=== PATIENT | female | born 2000 | race Caucasian/White ===

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

== ENCOUNTER → 2021-08-07 | Outpatient (CLI) | payer OTHER ==
--- NOTE | 2021-08-07 16:38 | Diagnostic Imaging Report ---
INDICATION: . Anatomic survey. TECHNIQUE: Multiple Real-time grayscale images were obtained over the gravid uterus. COMPARISON: None. FINDINGS: There is a single live intrauterine gestation. The cervix measures 4.2 cm in length. There is no funneling or endocervical fluid. The placenta is posterior without evidence of previa. The presentation is cephalic. The stomach is seen. The heart rate measures 155 BPM. The bladder is seen. The umbilical arteries are seen. The cord insertion is seen. The kidneys are seen. The upper and lower spine is seen. The cerebellum and cisterna magna are seen. The lateral ventricle is seen. The face is seen. The lower extremities are partially seen. The amniotic fluid index measures 12.8 cm. The left ventricular outflow tract is seen. The right ventricular outflow tract is seen. A four-chamber heart is suboptimally visualized. Biometrical measurements are as follows: Biparietal 5.10 cm, age 21 weeks 4 days. Head circumference 18.36 cm, age 20 weeks 6 days. Abdominal circumference 15.43 cm, age 20 weeks 5 days. Femur length 3.37 cm, age 20 weeks 4 days. Sonographic estimate age: 21 weeks 0 days. Sonographic estimated date of delivery: 12/18/2021. Estimated Weight: 367 gm (+/- 54 gm). LMP percentile: 73%. heart rate: 155 beats per minute. number: 1 of 1. IMPRESSION: 1. Single live intrauterine gestation measuring at 21 weeks and 0 days which is within range of the clinical dates. 2. No abnormality is seen on the anatomic survey. The four-chamber heart is suboptimally visualized. Dictated by: Dictated on workstation # [id number]
== END ==
LOC: RAD 14:55
PROVIDERS: ATTEND Nurse Practitioner Women's Health
DX: Z34.02 Encounter for supervision of normal first pregnancy, second trimester (principal); Z3A.21 21 weeks gestation of pregnancy
CPT/HCPCS: 76805

== ENCOUNTER 2021-11-13 14:48 | Outpatient (CLI) | payer OTHER ==
[~2021-11-13] VITALS: Ht 180.3 cm; Wt 85.0 kg
[2021-11-13 15:15] VITALS: BP 132/79
[2021-11-13 15:21] LABS: BILIRUBIN,URINE NEGATIVE (NEGATIVE); CLARITY,URINE CLEAR; COLOR,URINE YELLOW; GLUCOSE, URINE (UA) NEGATIVE (NEGATIVE); KETONES,URINE NEGATIVE (NEGATIVE); LEUKOCYTE ESTERASE ,URINE TRACE (NEGATIVE); NITRITE,URINE NEGATIVE (NEGATIVE); PH,URINE 6.5 (5-9); PROTEIN,URINE NEGATIVE (NEGATIVE)
[2021-11-13 15:37] LABS: BACTERIA,URINE TRACE /HPF; WBC,URINE 0-2 /HPF
== END 2021-11-13 15:41 | disposition home or self-care (01) ==
LOC: WSo 14:48 → LDRP 14:48 → WSo 15:41
PROVIDERS: ATTEND Obstetrics & Gynecology
DX: Z34.90 Encounter for supervision of normal pregnancy, unspecified, unspecified trimester (principal); Z3A.00 Weeks of gestation of pregnancy not specified
CPT/HCPCS: 81000

== ENCOUNTER 2021-12-19 06:20 | Inpatient (IN) | payer OTHER, BC ==
[2021-12-19] VITALS (48 sets, daily range): BP systolic 105–166; BP diastolic 58–95
[~2021-12-19] VITALS: Ht 182.9 cm; Wt 88.8 kg
--- NOTE | 2021-12-19 07:28 | History & Physical-OB ---
FINN NAVA 12/19/21 0728: OB - Chief Complaint & HPI Date/Time Date of Admission: Date of Admission: Dec 19, 2021 at 06:20 Date seen by a Provider: Dec 19, 2021 Time Seen by a Provider: 07:15 Chief Complaint/History OB-Reason for Admission/Chief: Induction of Labor Hx : 1 Hx Para: 0 Expected Date of Delivery: Dec 24, 2021 Gestational Age in Weeks: 39 Gestational Age in Days: 2 Admission Nurse Assessment Rev: Yes Allergies and Home Medications Patient Home Medication List Home Medication List Reviewed: Yes No Active Prescriptions or Reported Meds OB - History Hx of Present Care: Yes Ultrasounds: Normal mid trimester US Obstetrical Complications: None Medical Complications: None Information Induced Hypertension: No Maternal Gestational Diabetes: No Hemorrhage: No Patient Past Medical History Patient denies past medical history except for depression which she takes sertraline for. Previous surgery includes left ACL repair. Social History/Family History Alcohol Use: Occasionally Uses (Before ) Recreational Drug Use: No Smoking Cessation: Never smoker 2nd Hand Smoke Exposure: No Immunizations Hepatitis A: Yes Hepatitis B: Yes Tetanus Booster (TDap): Less than 5yrs Rubella: immune RPR/VDRL: Negative GBS Status: Negative HBsAG: Negative OB - Admission Exam Physical Exam HEENT: Moist Membranes Heart: Rhythm Normal Lungs: Clear Abdomen: Non tender Extremities: Edema Cervical Dilatation: 3cm Effacement: 25% Station: -3 Membranes: Intact Heart Rate: 130's Accelerations: Accelerations Present Decelerations: No Decelerations Short Term Variability: Present Health Science Specialist Variability: Average (6-25) Contractions on Admission: None OB - Assessment/Plan/Diagnosis Assessment Assessment: induction of labor Admission Estephanie Cosby is a 21yo F at 39w2d here for induction of labor. The patient has received care throughout her with no complications. The patient was awake, sitting up in bed at the beginning of the interview. She denies having any pain or contractions. Patient has had bilateral lower extremity swelling throughout her . Reports feeling pressure in her upper abdomen that is uncomfortable. Denies feeling SOB, cough, having chest pain, nausea, diarrhea, constipation, or dysuria. Admission Status: Observation Plan Plan: Induction Induction Method: per Pitocin Protocol Other Plan Patient is being induced today. Her water will be broken manually and then misoprostol 25mcg Q2hrs will be started. BISMARK HANCOCK DO 12/19/21 0743: Allergies and Home Medications Patient Home Medication List No Active Prescriptions or Reported Meds OB - Assessment/Plan/Diagnosis Plan Other Plan Verification and Attestation of Medical Student E/M Service A medical student performed and documented this service in my presence. I reviewed and verified all information documented by the medical student and made modifications to such information, when appropriate. I personally performed the physical exam and medical decision making. Bismark Hancock, Dec 19, 2021,07:43 FINN NAVA Dec 19, 2021 07:28 BISMARK HANCOCK DO Dec 19, 2021 07:43
[2021-12-19] MEDS ORDERED: D5 LR IV SOLUTION 1,000 ML IV ONE (07:41)
[2021-12-19] MEDS: D5 LR IV SOLUTION 1,000 ML IV SCH (07:45)
[2021-12-19 08:25] LABS: BASOPHILS % (AUTO) 0 % (0-10); EOSINOPHILS # (AUTO) 0.1 10^3/uL (0.0-0.3); EOSINOPHILS % (AUTO) 1 % (0-10); HEMATOCRIT 35 % (35-52); HEMOGLOBIN 11.6 g/dL (11.5-16.0); LYMPHOCYTES # (AUTO) 1.2 10^3/uL (1.0-4.0); LYMPHOCYTES % (AUTO) 12 % (12-44); MEAN CORPUSCULAR HEMOGLOBIN 32 pg (25-34); MEAN CORPUSCULAR HGB CONC 33 g/dL (32-36); MEAN CORPUSCULAR VOLUME 95 fL (80-99); MEAN PLATELET VOLUME 12.1 fL (9.0-12.2); MONOCYTES # (AUTO) 0.7 10^3/uL (0.0-1.0); MONOCYTES % (AUTO) 8 % (0-12); NEUTROPHILS # (AUTO) 7.5 10^3/uL (1.8-7.8); NEUTROPHILS % (AUTO) 78 % (42-75); PLATELET COUNT 151 10^3/uL (130-400); WHITE BLOOD COUNT 9.5 10^3/uL (4.3-11.0)
[2021-12-19] MEDS ORDERED: LIDOCAINE 1% INJ 20 ML VIAL IJ PRN (08:30)
[2021-12-19] MEDS ORDERED: LACTATED RINGERS 1,000 ML IV ONE ×2 (08:41→09:30)
[2021-12-19] MEDS ORDERED: fentaNYL 2 mcg/ml BUPIVA 0.125 100 ML ONE (08:41)
[2021-12-19] MEDS ORDERED: BUPIVACAINE 0.25% 30 ML (SENSORCAINE) VIAL ONE (08:51)
[2021-12-19] MEDS ORDERED: fentaNYL INJ 100 MCG/2 ML AMP ONE (08:51)
[2021-12-19] MEDS ORDERED: OXYTOCIN PRE-MIX DRIP 500 ML IV SCH ×2 (09:00→15:30)
[2021-12-19] MEDS ORDERED: ONDANSETRON 4 MG/2 ML (SDV) Z0FRAN ONE (09:16)
[2021-12-19] MEDS ORDERED: diphenhydrAMINE 50 MG/ML INJ (BENADRYL) IV PRN (09:30)
[2021-12-19] MEDS ORDERED: ONDANSETRON 4 MG/2 ML (SDV) Z0FRAN IV PRN (09:30)
[2021-12-19] MEDS ORDERED: NALOXONE 0.4 MG/ML 1 ML (NARCAN) VIAL IV PRN ×2 (09:30→15:30)
[2021-12-19] MEDS ORDERED: CATHETER FLUSH 10 ML SYR IV PRN (09:30)
[2021-12-19] MEDS ORDERED: fentaNYL 2 mcg/ml BUPIVA 0.125 100 ML IV SCH (09:30)
[2021-12-19] MEDS ORDERED: LIDOCAINE 1% INJ 10 ML VIAL ONE (13:41)
--- NOTE | 2021-12-19 15:26 | OB Labor & Delivery Record ---
L&D History Date of Service Date of Service: Dec 19, 2021 History Expected Date of Delivery: Dec 24, 2021 Gestational Age in Weeks: 39 Hx : 1 Hx Para: 0 Complications Events: Routine care Operative Indications (Cesarea: N/A-Vaginal Delivery Intrapartal Events: None L&D Stage1 Stage One Onset of Labor - Date: Dec 19, 2021 Monitors and Tracing Monitor Mode: External Heart Rate: 135 Station: 0 Mcc Variability: Average (6-10) Short Term Variability: Present Presentation: Vertex Vital Signs VS - Last 72 Hours, by Label 12/19/21 12/19/21 12/19/21 12/19/21 07:16 08:57 08:59 09:02 Temp 36.5 Pulse 81 77 76 75 Resp 18 18 18 18 B/P (MAP) 135/91 (106) 150/74 (99) 141/71 (94) 142/78 (99) Pulse Ox 97 99 98 O2 Delivery Room Air Room Air Room Air Room Air 12/19/21 12/19/21 12/19/21 12/19/21 09:05 09:08 09:11 09:15 Pulse 83 69 71 65 Resp 18 18 18 18 B/P (MAP) 129/71 (90) 105/60 (75) 114/58 (76) 116/63 (80) Pulse Ox 97 97 99 97 O2 Delivery Room Air Room Air Non Rebreather Non Rebreather O2 Flow Rate 15.00 15.00 12/19/21 12/19/21 12/19/21 12/19/21 09:17 09:20 09:26 09:39 Pulse 66 70 82 77 Resp 18 18 18 18 B/P (MAP) 117/64 (81) 124/68 (86) 127/72 (90) 128/74 (92) Pulse Ox 97 97 98 96 O2 Delivery Non Rebreather Non Rebreather Non Rebreather Non Rebreather O2 Flow Rate 15.00 15.00 15.00 15.00 12/19/21 12/19/21 12/19/21 12/19/21 09:43 09:49 09:58 10:02 Pulse 76 83 79 78 Resp 18 18 18 18 B/P (MAP) 127/76 (93) 131/72 (91) 121/70 (87) 151/77 (101) Pulse Ox 95 96 96 96 O2 Delivery Room Air Room Air Room Air Room Air 12/19/21 12/19/21 12/19/21 12/19/21 10:15 10:19 10:29 10:59 Temp 36.2 36.5 Pulse 74 68 72 Resp 18 18 18 B/P (MAP) 117/63 (81) 109/59 (76) 131/60 (83) Pulse Ox 96 95 98 O2 Delivery Room Air Non Rebreather Room Air 12/19/21 12/19/21 12/19/21 12/19/21 11:18 11:34 13:13 13:19 Temp 36.4 Pulse 83 76 82 Resp 18 18 18 B/P (MAP) 120/76 (91) 119/65 (83) 120/72 (88) Pulse Ox 99 98 99 O2 Delivery Room Air Room Air Room Air Rupture of Membranes Spontaneous Ruture of Membrane: No Amniotic Membrane Rupture Time: 730 Amniotic Membrane Fluid Desc.: Clear Vaginal Bleeding Description: Normal Show Induction/Anesthesia Epidural Cath Placement - Time: 904 Progress/Notes Patient admitted for elective IOL at 39 weeks. AROM performed and epidural placed. Pitocin started to max dose of 4 mu. She progressed to complete and + 2 station L&D Stage2 Stage Two Stage II Date: Dec 19, 2021 Monitors and Tracing Monitor Mode: External Heart Rate: 135 Plaster Lather Variability: Average (6-10) Short Term Variability: Present Position: Right Occiput Anterior Presentation: Vertex Cord Descript/Complications Cord Vessel Description: 3 Vessels Delivery Type Delivery Method: Spontaneous Vaginal Anterior Shoulder: Right Episiotomy/Perineal Laceration Laceraction(s)/Extensions: Yes Episiotomy Description: Perineal Extension/lac, 2nd degree Degree (describe repair) laceration repaired using 3-0 rapide and 2-0 vicryl suture Condition of Delivery 1 minute Comment: 8 5 minute Comment: 8 Notes Live male weight 7lbs 6 oz Condition of Condition of : Living Exam: No Observed Abnormalities Resuscitation Resuscitation: N/A - Spontaneous Resp L&D Stage3 Stage Three Stage III Date: Dec 19, 2021 Pictocin Pitocin Administration mu/min: 4 Pitocin ml/hr: 4 Pitocin Administration Comment: 30 mu wide open after delivery of placenta Placenta Delivery Placenta Delivery: Spontaneous Delivery Summary Summary Estimated blood loss (mL): 300 Attending at delivery: Leann Hancock DO Condition of Delivery Examined: Cervix Examined, Uterus Explored Post Hemorrhage: No Condition of Mother stable Condition of Infant (s) stable LEANN HANCOCK DO Dec 19, 2021 15:26
[2021-12-19] MEDS ORDERED: HYDROcodone/APAP 5 MG/325 MG (LORTAB) TAB PO PRN (15:30)
[2021-12-19] MEDS ORDERED: BENZOCAINE/MENTHOL (DERMOPLAST) 56 ML CAN TP PRN (15:30)
[2021-12-19] MEDS ORDERED: MEASLES,MUMPS,RUBELLA 1 EA INJ SQ ONE (15:30)
[2021-12-19] MEDS ORDERED: WITCH HAZEL(TUCKS) 40 EA JAR TOP PRN (15:30)
[2021-12-19] MEDS ORDERED: TETANUS,DIPTH,PERTUSS P/F (BOOSTRIX) 0.5 ML VIAL IM ONE (15:30)
[2021-12-19] MEDS ORDERED: DIBUCAINE 1% OINTMENT 30 GM TUBE TOP PRN (15:30)
--- NOTE | 2021-12-19 15:30 | Discharge Inst-Women's Service ---
Discharge Inst-Women's Serv Depart Medication/Instructions New, Converted or Re-Newed RX: Transmitted to Pharmacy Final Diagnosis PPD 1 NVD Problems Reviewed?: Yes Consults/Follow Up Additional Follow Up: Yes Orders/Referrals Dr. Hancock in 6 weeks Activity Activity: Activity as Tolerated Driving Instructions: No Driving for 1 Week NO SMOKING: NO SMOKING Nothing Inside Vagina: No Douching, No [place], No Tampons Diet Discharge Diet: No Restrictions Symptoms to Report to : Bleeding Excessive, Pain Increased, Fever Over 101 Degrees F, Vaginal Bleeding Increase, Questions/Concerns For Any Problems or Questions: Contact Your Physician TEE HANCOCK DO Dec 19, 2021 15:30
[2021-12-19] MEDS ORDERED: DIBU30OI TOP (15:33)
[2021-12-19] MEDS ORDERED: ACHD5005 PO (15:33)
[2021-12-19] MEDS ORDERED: IBUP-1773 PO (15:33)
[2021-12-19] MEDS ORDERED: BENZ78AE5 TP (15:33)
[2021-12-19] MEDS ORDERED: FERR325T24 PO (15:33)
[2021-12-19] MEDS: IBUPROFEN 600 MG (MOTRIN) TAB PO SCH ×2 (15:38→20:17)
[2021-12-19] MEDS: DOCUSATE SODIUM 100 MG (COLACE) CAP PO SCH (20:16)
[2021-12-19] MEDS: CATHETER FLUSH 10 ML SYR IV SCH ×2 (20:17→21:14)
[2021-12-20] VITALS: BP 133/82
[2021-12-20] MEDS: D5 LR IV SOLUTION 1,000 ML IV SCH (00:47)
[2021-12-20] MEDS: IBUPROFEN 600 MG (MOTRIN) TAB PO SCH ×3 (04:31→16:15)
[2021-12-20 04:40] VITALS: BP 128/71
[2021-12-20] MEDS: CATHETER FLUSH 10 ML SYR IV SCH ×2 (04:53)
[2021-12-20 06:05] LABS: BASOPHILS % (AUTO) 0 % (0-10); EOSINOPHILS # (AUTO) 0.1 10^3/uL (0.0-0.3); EOSINOPHILS % (AUTO) 1 % (0-10); HEMATOCRIT 30 % (35-52); HEMOGLOBIN 9.9 g/dL (11.5-16.0); LYMPHOCYTES # (AUTO) 1.6 10^3/uL (1.0-4.0); LYMPHOCYTES % (AUTO) 12 % (12-44); MEAN CORPUSCULAR HEMOGLOBIN 32 pg (25-34); MEAN CORPUSCULAR HGB CONC 33 g/dL (32-36); MEAN CORPUSCULAR VOLUME 96 fL (80-99); MONOCYTES % (AUTO) 8 % (0-12); NEUTROPHILS # (AUTO) 10.2 10^3/uL (1.8-7.8); NEUTROPHILS % (AUTO) 79 % (42-75); PLATELET COUNT 133 10^3/uL (130-400)
[2021-12-20] MEDS ORDERED: PRENATAL VITAMIN 1 EA TAB PO SCH (07:00)
[2021-12-20] MEDS ORDERED: FERROUS SULF 325 MG (IRON) TAB PO SCH (09:00)
--- NOTE | 2021-12-20 09:50 | Postpartum Progress Note ---
Note Note Day # [] Subjective: Patient is without complaints. Ambulating, voiding. Tolerating a regular diet without nausea or vomiting. Normal lochia. Pain is well controlled with oral pain medications. Physical Exam: General - Alert and oriented, no apparent distress Abdomen - Soft, appropriately tender to palpation, non-distended, fundus firm at umbilicus Extremities - no edema, negative Emily's bilaterally Assessment: Post- day # 1, status post vaginal delivery. Recovering well, hemodynamically stable Acute blood loss anemia Plan: Routine care. Encourage breast feeding. Encourage ambulation. Ferrous sulfate supplementation. Plan for discharge today Vitals - Labs Vital Signs - I&O Vital Signs Date Time Temp Pulse Resp B/P (MAP) Pulse Ox O2 Delivery O2 Flow Rate FiO2 12/20/21 04:40 36.6 67 16 128/71 (90) 97 Room Air 12/20/21 00:00 37.0 85 14 133/82 (99) 96 Room Air 12/19/21 20:00 36.8 79 14 130/68 (88) 95 Room Air 12/19/21 18:09 36.7 82 18 140/72 (94) Room Air 12/19/21 17:47 77 18 124/63 (83) Room Air 12/19/21 17:32 90 18 127/72 (90) Room Air 12/19/21 17:17 133/71 (91) 12/19/21 17:02 94 18 140/67 (91) Room Air 12/19/21 16:47 92 18 146/68 (94) Room Air 12/19/21 16:33 86 18 140/60 (86) Room Air 12/19/21 16:17 83 18 129/71 (90) Room Air 12/19/21 16:04 37.3 94 18 133/83 (100) Room Air 12/19/21 15:48 37.4 96 18 119/72 (88) Room Air 12/19/21 15:32 37.3 101 18 132/62 (85) Room Air 12/19/21 15:24 37.2 101 18 131/63 (85) Room Air 12/19/21 15:17 100 18 126/61 (82) Room Air 12/19/21 15:03 133 18 166/85 (112) Room Air 11/3/22 14:47 122 18 139/68 (91) Room Air 12/19/21 14:33 133 18 130/60 (83) Room Air 12/19/21 14:18 122 18 138/64 (88) Room Air 12/19/21 14:04 100 18 145/67 (93) Room Air 12/19/21 13:48 95 18 135/95 (108) 99 Room Air 12/19/21 13:34 98 18 140/84 (102) 100 Room Air 12/19/21 13:19 82 18 120/72 (88) 99 Room Air 12/19/21 13:13 36.4 12/19/21 13:12 36.4 12/19/21 13:03 70 18 122/71 (88) 97 Room Air 12/19/21 12:34 74 18 114/67 (83) 100 Room Air 12/19/21 12:17 66 18 121/70 (87) 99 Room Air 12/19/21 12:03 75 18 116/69 (85) 99 Room Air 12/19/21 11:49 76 18 120/73 (89) 98 Room Air 12/19/21 11:34 76 18 119/65 (83) 98 Room Air 12/19/21 11:18 83 18 120/76 (91) 99 Room Air 12/19/21 10:59 36.5 72 18 131/60 (83) 98 Room Air 12/19/21 10:29 68 18 109/59 (76) 95 Non Rebreather 12/19/21 10:19 74 18 117/63 (81) 96 Room Air 12/19/21 10:15 36.2 12/19/21 10:02 78 18 151/77 (101) 96 Room Air 12/19/21 09:58 79 18 121/70 (87) 96 Room Air 12/19/21 09:49 83 18 131/72 (91) 96 Room Air I & O 12/20/21 07:00 Intake Total 3000 ml Output Total 725 ml Balance 2275 ml Labs Laboratory Tests 12/20/21 05:22: White Blood Count 13.0H, Red Blood Count 3.13L, Hemoglobin 9.9L, Hematocrit 30L, Mean Corpuscular Volume 96, Mean Corpuscular Hemoglobin 32, Mean Corpuscular Hemoglobin Concent 33, Red Cell Distribution Width 15.0H, Platelet Count 133, Mean Platelet Volume 12.0, Immature Granulocyte % (Auto) 1, Neutrophils (%) (Auto) 79H, Lymphocytes (%) (Auto) 12, Monocytes (%) (Auto) 8, Eosinophils (%) (Auto) 1, Basophils (%) (Auto) 0, Neutrophils # (Auto) 10.2H, Lymphocytes # (Auto) 1.6, Monocytes # (Auto) 1.0, Eosinophils # (Auto) 0.1, Basophils # (Auto) 0.0, Immature Granulocyte # (Auto) 0.2H MANN ESPINO DESIGN TECHNOLOGY TEACHER Dec 20, 2021 09:50
[2021-12-20] MEDS: DOCUSATE SODIUM 100 MG (COLACE) CAP PO SCH (10:59)
[2021-12-20 11:05] VITALS: BP 140/70
--- NOTE | 2021-12-20 13:29 | Anesthesia-Regional Post-Op ---
Regional Patient Condition Mental Status: Alert, Oriented x3 Circulation: Same as Pre-Op Headache: Absent Sensation: Full Recovery Motor Block: Absent Post Op Complications Complications None Follow Up Care/Instructions Patient Instructions None needed. Anesthesia/Patient Condition Patient is doing well, no complaints, stable vital signs, no apparent adverse anesthesia problems. No complications reported per nursing. BERNARD BRAY CRNA Dec 20, 2021 13:29
== END 2021-12-20 17:50 | disposition home or self-care (01) | DRG 806 ==
LOC: LDRP 06:20 → WS 07:00 → LDRP 07:02
PROVIDERS: ADMIT Obstetrics & Gynecology; ATTEND Obstetrics & Gynecology
PROC: 10E0XZZ Delivery of Products of Conception, External Approach (ICD-10-PCS; principal; 2021-12-19)
PROC: 0KQM0ZZ Repair Perineum Muscle, Open Approach (ICD-10-PCS; 2021-12-19)
PROC: 10907ZC Drainage of Amniotic Fluid, Therapeutic from Products of Conception, Via Natural or Artificial Opening (ICD-10-PCS; 2021-12-19)
PROC: 3E033VJ Introduction of Other Hormone into Peripheral Vein, Percutaneous Approach (ICD-10-PCS; 2021-12-19)
DX: O70.1 Second degree perineal laceration during delivery (principal); D62 Acute posthemorrhagic anemia; Z37.0 Single live birth; Z3A.39 39 weeks gestation of pregnancy; O90.81 Anemia of the puerperium
CPT/HCPCS: 36415; 83033; 85025; 86780; 86850; 86900; 86901

== ENCOUNTER 2022-05-06 18:05 | Emergency (ER) | payer BC, OTHER ==
[~2022-05-06] VITALS: Ht 182 cm; Wt 72.6 kg
[~2022-05-06 18:05] MED LIST: ACHD5005 PO; BENZ78AE5 TP; DIBU30OI TOP; FERR325T24 PO; IBUP-1773 PO
[2022-05-06 18:43] VITALS: BP 132/96
[2022-05-06] MEDS ORDERED: NAPR-915 PO (19:27)
[2022-05-06] MEDS ORDERED: ACHD5005 PO (19:27)
[2022-05-06] MEDS ORDERED: METH-731 PO (19:27)
[2022-05-06] MEDS ORDERED: METH4TAB10 PO (19:27)
--- NOTE | 2022-05-06 19:28 | ED Back Pain ---
General Chief Complaint: Back Problems Stated Complaint: BACK/LEFT LEG PAIN Nursing Triage Note: Patient ambulatory to ER w c/o left leg pain. Started in December after she had a baby. Patient states she has been seen a chiropractor but it's not working. Pain starts in the tailbone area and radiates down hamstring into top part of calf. Source of Information: Patient Exam Limitations: No Limitations History of Present Illness Date Seen by Provider: May 06, 2022 Time Seen by Provider: 19:23 Initial Comments Patient is a 22-year-old female who presents ED with low back pain and left leg pain. She states she has had symptoms since December after giving . She developed this low back pain that is described as sharp. Started developing numbness and tingling down into her left foot. The numbness and tingling has improved. She has had intermittent improvement of her pain since December. This pain became worse over the past 2 or 3 days. Patient went to her chiropractor and was recommended come to ED. She states she has had an x-ray performed outpatient [facility]. She states she has been on a muscle relaxer in the past without much improvement. She was prescribed tramadol but she did not take the medication. She denies of any bowel or urine cons, saddle paresthesia, lower extremity weakness. No current numbness and tingling in the left lower extremity. Denies fever, chills, abdominal pain, vomit, diarrhea Allergies and Home Medications Allergies Coded Allergies: No Known Drug Allergies (Unverified , 12/19/21) Patient Home Medication List Home Medication List Reviewed: Yes Benzocaine/Menthol (Dermoplast Pain Relieving Ramos) 20 %-0.5 % Aerosol, 56 EA TP UD PRN for PAIN- SEE INSTRUCTIONS Prescribed by: TEE HANCOCK on 12/19/21 1533 Dibucaine (Dibucaine) 1 % Oint, 1 GM TOP UD PRN for PAIN- SEE INSTRUCTIONS Prescribed by: TEE HANCOCK on 12/19/21 1533 Ferrous Sulfate (Ferosul) 325 Mg (65 Mg Iron) Tablet, 325 MG PO DAILY Prescribed by: TEE HANCOCK on 12/19/21 1533 Hydrocodone/Acetaminophen (Hydrocodone-Acetamin 5-325 mg) 5 Mg-325 Mg Tablet, 1 TAB PO Q4H PRN for PAIN-MODERATE (5-7) Prescribed by: TEE HANCOCK on 12/19/211532 Hydrocodone/Acetaminophen (Hydrocodone-Acetamin 5-325 mg) 5 Mg-325 Mg Tablet, 1 TAB PO Q4H PRN for PAIN-MODERATE (5-7) Prescribed by: MICK TORRES on 05/06/221926 Ibuprofen (Ibuprofen) 600 Mg Tablet, 600 MG PO Q6H Prescribed by: TEE HANCOCK on 12/19/211532 Methocarbamol (Methocarbamol) 500 Mg Tablet, 500 MG PO Q6-8HR Prescribed by: MICK TORRES on 05/06/221926 Methylprednisolone (Methylprednisolone Dose Pack) 4 Mg Tab.ds.pk, 4 MG PO UD Prescribed by: MICK TORRES on 05/06/221926 Naproxen (Naproxen) 500 Mg Tablet, 500 MG PO Q12H Prescribed by: MICK TORRES on 05/06/221926 Review of Systems Constitutional: No chills, No diaphoresis, No malaise, No weakness EENTM: No ear pain, No blurred vision, No mouth pain, No throat pain Respiratory: No cough, No short of breath Cardiovascular: No chest pain Gastrointestinal: No abdominal pain, No diarrhea, No nausea Genitourinary: No decreased output Musculoskeletal: back pain, joint pain, muscle pain Skin: No change in color, No change in hair/nails All Other Systems Reviewed Negative Unless Noted: Yes Past [id number]-[id number] Hx Patient Social History Tobacco Use?: No Substance use?: No Alcohol Use?: Yes Alcohol Frequency: Rarely Immunizations Up To Date Tetanus Booster (TDap): Less than 5yrs First/Initial COVID19 Vaccinat: unknown COVID19 Vaccine [place] [employer]: unknown Physical Exam Vital Signs Vital Signs - First Documented 05/06/22 18:43 Temp 36.2 Pulse 85 Resp 20 B/P (MAP) 132/96 (108) Pulse Ox 99 O2 Delivery Room Air Capillary Refill : Less Than 3 Seconds Height, Weight, BMI Height: '" Weight: lbs. oz. kg; 21.00 BMI Method: General Appearance: No Apparent Distress, WD/WN HEENT: PERRL/EOMI, TMs Normal, Normal ENT Inspection, Pharynx Normal Neck: Full Range of Motion, Normal Inspection, Non Tender, Supple Cardiovascular: Regular Rate, Rhythm, No Edema, No Gallop, No JVD Respiratory: Chest Non Tender, Lungs Clear, Normal Breath Sounds, No Accessory Muscle Use, No Respiratory Distress Gastrointestinal: Normal Bowel Sounds, No Organomegaly, No Pulsatile Mass, Non Tender, Soft Back: No CVA Tenderness, Vertebral Tenderness (Lumbar lower midline tenderness. Left lumbar paraspinal muscle tenderness. Normal active range of motion.) Extremity: Normal Capillary Refill, Normal Inspection, Normal Range of Motion, Non Tender Neurologic/Psychiatric: Alert, Oriented x3, No Motor/Sensory Deficits, Normal Mood/Affect, real estate management specialist II-XII Norm as Tested Skin: Normal Color, Warm/Dry Progress/Results/Core Measures Results/Orders My Orders Orders - ASH WISE Orphenadrine Inj (Ed Only) (Norflex Inje (05/06/22 19:30) Ketorolac Injection (Toradol Injection) (05/06/22 19:30) Methylprednisolone Sod Succ (Solu-Medrol (05/06/22 19:30) Medications Given in ED Current Medications Medications Dose Ordered Sig/Sophia Route Start Time Stop Time Status Last Admin Dose Admin Ketorolac Tromethamine 30 mg ONCE ONCE IM 05/06/22 19:30 05/06/22 19:31 DC 05/06/22 19:34 30 MG Methylprednisolone Sodium Succinate 80 mg ONCE ONCE IM 05/06/22 19:30 05/06/22 19:31 DC 05/06/22 19:33 80 MG Orphenadrine Citrate 60 mg ONCE ONCE IM 05/06/22 19:30 05/06/22 19:31 DC 05/06/22 19:34 60 MG Vital Signs/I&O 05/06/22 05/06/22 18:43 19:34 Temp 36.2 36.2 Pulse 85 Resp 20 B/P (MAP) 132/96 (108) Pulse Ox 99 O2 Delivery Room Air Blood Pressure Mean: 108 Departure Communication (PCP) Reviewed previous H&P's, testing. Patient with lower back pain since December post . She did have radiculopathy pain down into her left foot. The numbness and tingling has improved but continue having this intermittent pain in her lower back. Exacerbated the pain over the past 2 days after no known injury. She Went to her chiropractor who recommended come to the ED. She had an outpatient x-ray that was unremarkable. Patient with lumbar midline tenderness. She has no bowel or urine cons, saddle paresthesia. Lumbar radiculopathy. No neurological red flag findings. Discussed my concerns for potential bulging disc. Discussed the benefit with further imaging such as MRI. Did offer CT scan however I do think an MRI would be a better choice at this time. She agrees. She was requesting something for pain. Patient Was given Solu-Medrol, Toradol, and Norflex. Will discharge with Medrol Dosepak, naproxen and Robaxin. [place] as needed. Recommend outpatient follow-up. She is scheduled to follow-up with orthopedic on Thursday. If any worsening symptoms return back to ED for further evaluation Impression Primary Impression: Low back pain Disposition: HOME, SELF-CARE Condition: Stable Departure-Patient Inst. Decision time for Depature: 19:25 Referrals: [facility] [place],LOCAL PHYSICIAN (PCP) Primary Care Physician Patient Instructions: Low Back Pain in Adults Scripts Naproxen (Naproxen) 500 Mg Tablet 500 MG PO Q12H for Pain, #20 TAB Prov: ASH WISE 05/06/22 Methocarbamol (Methocarbamol) 500 Mg Tablet 500 MG PO Q6-8HR for Back Pain, #20 TAB Prov: ASH WISE 05/06/22 Hydrocodone/Acetaminophen (Hydrocodone-Acetamin 5-325 mg) 5 Mg-325 Mg Tablet 1 TAB PO Q4H PRN for PAIN-MODERATE (5-7), #8 TAB Prov: ASH WISE 05/06/22 Methylprednisolone (Methylprednisolone Dose Pack) 4 Mg Tab.ds.pk 4 MG PO UD for 6 Days, #21 PKG PER DOSE PACK INSTRUCTIONS Prov: ASH WISE 05/06/22 Work/School Note: Work Release Form Date Seen in the Emergency Department: May 06, 2022 Return to Work: May 09, 2022 ASH WISE May 06, 2022 19:28
[2022-05-06] MEDS ORDERED: methylPREDNISolone 40 MG/ML (Solu-MEDROL) VIAL IM ONE (19:30)
[2022-05-06] MEDS ORDERED: KETOROLAC 30 MG/ML VIAL IM ONE (19:30)
[2022-05-06] MEDS ORDERED: ORPHENADRINE 60 MG/2 ML (NORFLEX) AMP (ED ONLY) IM ONE (19:30)
== END 2022-05-06 19:41 | disposition home or self-care (01) ==
LOC: EDUNIT# 18:05 → ER 18:09
DX: M54.16 Radiculopathy, lumbar region (principal)
CPT/HCPCS: 99284